=== PATIENT | female | born 1950 | race Caucasian/White ===

== ENCOUNTER 2017-11-23 11:01 | Outpatient (CLI) | payer MEDICARE, OTHER ==
[~2017-11-23] VITALS: Ht 162.6 cm; Wt 75.0 kg
[2017-11-23] MEDS ORDERED: PREMARIN0.9 MG PO (11:42)
[2017-11-23 11:43] VITALS: Ht 162.6 cm; Wt 75.0 kg
[2017-11-23 12:12] LABS: BASOPHILS 0.1 % (0-2); EOSINOPHILS 4.3 % (0-7); HEMATOCRIT 38.5 % (36.0-48.0); HEMOGLOBIN 12.6 g/dL (12-16); IMMATURE GRANULOCYTES 0.1 % (0-5); MCHC 32.7 g/dL (31.0-37.0); MCV 94.8 fL (80.0-100.0); MEAN PLATELET VOLUME 10.6 fL (7.4-10.4); MONOCYTES 6.3 % (2-11); NEUTROPHILS 56.2 % (40-80); PLATELET COUNT 264 10x3/uL (130-400); RBC 4.06 10x6/uL (4.00-5.40); RDW 12.6 % (11.5-14.5); WBC 6.7 10x3/uL (4.8-10.8)
== END 2017-11-23 14:20 | disposition home or self-care (01) ==
LOC: D.MRI 11:01
PROVIDERS: Anesthesiology
DX: M54.16 Radiculopathy, lumbar region (principal)